=== PATIENT | female | born 1935 | race Caucasian/White ===

== ENCOUNTER 2017-09-30 21:28 | Inpatient (IN) ==
[2017-10-01] MEDS ORDERED: Acetaminophen 325 MG Tablet PO PRN (01:45)
[2017-10-01] MEDS ORDERED: Aluminum/Magnesium/Simethacone Susp 30 ML UDC PO PRN ×2 (01:45→09:20)
[2017-10-01] MEDS ORDERED: Butalbital/APAP/Caff 50/325/40 MG Tablet PO PRN ×2 (02:24→10:41)
[2017-10-01] MEDS ORDERED: QUEtiapine 25 MG Tablet PO SCH ×2 (09:00→13:00)
[2017-10-01] MEDS ORDERED: Bisacodyl 10 MG Supp RECTAL PRN (09:20)
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
[2017-10-01] MEDS: Citalopram 20 MG Tablet PO SCH (10:30)
[2017-10-01] MEDS ORDERED: ALPRAZolam 0.25 MG Tablet PO PRN (10:41)
[2017-10-01] MEDS ORDERED: Non-Formulary Drug (Quetiapine [Quetiapine] 50 MG) PO SCH (13:00)
--- NOTE | 2017-10-01 13:39 | P.CON ---
History of Present Illness Service: Hospitalist service Consult date: 10/01/17 Requesting Physician: Matt Womack Reason for Consult: Assist with medical needs Primary Care Provider: PROVIDER NON STAFF History of Present Illness: This is a 82-year-old female with a past medical history significant for Alzheimer's and atrial fibrillation on Eliquis who was initially admitted at [facility] in [place] under Alan act 09/30/2017 due to aggressiveness, acute confusion and agitation. Reportedly, assisting living facility where the patient resides reported the patient was destructive with self inflicted behaviors including refusing medications and examination. Patient has since been transferred to [facility] inpatient psychiatry and hospitalist services have been consulted to assist with medical management. Patient seen and evaluated in the day room. Patient appears calm and comfortable sitting in chair. She is able to give me a fairly accurate medical history but does not report any issues with increased agitation and combativeness that led to her hospitalization. She does have a tendency to ramble off topic but is easily redirectable. She denies any acute medical complaints. She is alert and oriented 2 able to correctly tell me yesterday was 30 of September and that she is in [place]. She knows that she is in [place] but believes she is in [place]. She is unable to recall the name of the president but can tell me that he is not attractive and very rich. She is unable to tell me the correct year stating it is 2007. She denies any complaints of headache or dizziness. She denies any chest pain or shortness of breath. She denies any nausea, vomiting or abdominal pain. She states she has chronic constipation and normally has a bowel movement once every 3 days. She denies any urinary difficulties. Review of Systems All other systems reviewed negative except as stated in [facility] - History History Provided By: Patient, Medical Record - Medical History Medical History: Medical History (Last Updated 10/01/17 @ 13:27 by Charis Villanueva) Atrial fibrillation Dementia - Surgical History Surgical History: Surgical History (Last Updated 10/01/17 @ 13:28 by Charis Villanueva) H/O breast augmentation History of loop recorder - Family History Family History: Family History (Last Updated 10/01/17 @ 13:29 by Charis Villanueva) Other Atrial fibrillation Coronary heart disease - Tobacco History Second Hand Smoke Exposure: No Tobacco Use In Past 30 Days: No Smoking Status: Never smoker - Alcohol History How Often Do You Have a Drink Containing Alcohol: Monthly or less (Regularly per her daughter's history) - Substance Use History Substance History: No History of Abuse - Immunization History Tetanus Immunization: >5 Years Tetanus Immunization Year if Known: 2017 Hx Influenza Vaccine This Season: Yes Medications and Allergies Active Medications: Active Medications Acetaminophen (Tylenol) 650 mg PO Q4H PRN PRN Reason: Pain 1-5 or Temp >101F Acetaminophen/Butalbital/Caffeine (Fioricet 50-325-40) 1 tab PO Q4H PRN PRN Reason: TENSION HEADACHE Acetaminophen/Butalbital/Caffeine (Fioricet 50-325-40) 1 tab PO Q4H PRN PRN Reason: TENSION HEADACHE Al Hydrox/Mg Hydrox/Simethicone (Mag-Al Plus Susp Liq) 30 ml PO Q6H PRN PRN Reason: DYSPEPSIA Al Hydroxide/Mg Hydroxide (Milk Of Magnesia Liq) 30 ml PO Q12H PRN PRN Reason: Mild Constipation Alprazolam (Xanax) 0.25 mg PO DAILY PRN PRN Reason: Panic Attack(S) Apixaban (Eliquis) 2.5 mg PO BID [facility] Last Admin: 10/01/17 10:29 Dose: 2.5 mg Bisacodyl (Dulcolax Supp) 10 mg RECTAL DAILY PRN PRN Reason: SEVERE CONSITIPATION Citalopram Hydrobromide (Celexa) 20 mg PO DAILY [facility] Last Admin: 10/01/17 10:30 Dose: 20 mg Citalopram Hydrobromide (Celexa) 20 mg PO DAILY [facility] Diphenhydramine HCl (Benadryl) 50 mg PO HS PRN PRN Reason: INSOMNIA Fluticasone Propionate (Flonase Nasal [place]) 1 spray EACH NARE Q24H PRN PRN Reason: FOR ALLERGIES Fluticasone Propionate (Flonase Nasal [place]) 1 spray EACH NARE DAILY PRN PRN Reason: ALLERGY SYMPTOMS Haloperidol (Haldol) 0.5 mg PO DAILY PRN PRN Reason: mood/mental disorder Hydroxyzine HCl (Atarax) 50 mg PO Q6H PRN PRN Reason: ANXIETY Lactulose (Lactulose Liq) 30 ml PO DAILY PRN PRN Reason: SEVERE CONSITIPATION Quetiapine Fumarate (Seroquel) 75 mg PO TID SAPNA Senna/Docusate Sodium (Sandra-Colace) 1 tab PO BID SAPNA Sennosides (Senokot) 17.2 mg PO Q12H PRN PRN Reason: Moderate Constipation Allergies Allergy/AdvReac Type Severity Reaction Status Date / Time Penicillins Allergy Rash Verified 10/01/17 01:23 Home Medications Medication Instructions Recorded Confirmed Type alprazolam 0.25 mg PO DAILY PRN 10/01/17 10/01/17 History apixaban [Eliquis] 2.5 mg PO BID 10/01/17 10/01/17 History bestyafqtk-xyhrksipnvweh-vaxo 1 tab PO Q4H PRN 10/01/17 10/01/17 History citalopram 20 mg PO DAILY 10/01/17 10/01/17 History fluticasone 1 spray INTRANASAL DAILY PRN 10/01/17 10/01/17 History haloperidol 0.5 mg PO DAILY PRN 10/01/17 10/01/17 History quetiapine 25 mg PO TID 10/01/17 10/01/17 History quetiapine 50 mg PO TID 10/01/17 10/01/17 History Physical Exam Vital signs: Vital Signs 09/30/17 23:54 10/01/17 07:38 Temperature 97.6 F Pulse Rate 63 58 L Respiratory Rate 18 18 Blood Pressure 148/68 H 146/67 H Pulse Oximetry 96 96 Intake & Output 09/30/17 10/01/17 10/01/17 18:59 06:59 18:59 Intake Total 360 / 360 Balance 360 / 360 Intake: Oral 360 / 360 Other: Weight On Admission 50.1 kg Narrative: GENERAL: This is a well-developed well-nourished elderly female in no acute distress. Awake and alert. Appears comfortable. SKIN: Warm and dry. HEAD: Atraumatic. Normocephalic. EYES: Pupils equal and round. No scleral icterus. No injection or drainage. ENT: No nasal bleeding or discharge. Mucous membranes pink and moist. NECK: Trachea midline. No JVD. CARDIOVASCULAR: Regular rate and rhythm. No murmurs rubs or gallops appreciated. Unable to palpate a device left anterior chest. RESPIRATORY: Nonlabored. Clear to auscultation. Breath sounds equal bilaterally. GASTROINTESTINAL: Abdomen soft, non-tender, nondistended. Hepatic and splenic margins not palpable. MUSCULOSKELETAL: Extremities without clubbing, cyanosis, or edema. No obvious deformities. NEUROLOGICAL: Awake and alert. Oriented x 2. No obvious cranial nerve deficits. Motor grossly within normal limits. Able to move all extremities spontaneously. No focal neurologic finding appreciated. Normal speech. PSYCHIATRIC: Appropriate mood and affect, judgment and insight poor. Calm and cooperative Assessment and Plan - Plan 82-year-old with past medical history significant for dementia and atrial fibrillation on Eliquis admitted under Alan act to inpatient psychiatry for agitation, aggressiveness consult inflicting behaviors. Hospitalist services have been consulted to assist with medical management. Alzheimer's dementia with behavioral disturbance -Management per psychiatry Atrial fibrillation on Eliquis, rate controlled -Continue Eliquis patient's home dose 2.5mg BID -Continue to monitor heart rate Chronic constipation -We will start patient on scheduled stool softener -MiraLAX as needed DVT prophylaxis -Patient is ambulatory Thank you very kindly for this consultation. Patient appears stable from hospitalist standpoint. [facility] will sign off. Please reconsult if needed. Discussed Condition With: patient
[2017-10-01] MEDS: QUEtiapine 25 MG Tablet PO SCH ×2 (13:44→17:20)
[2017-10-01] MEDS: Senna/Docusate Sodium 8.6/50 MG Tablet PO SCH (20:15)
[2017-10-02] MEDS: Senna/Docusate Sodium 8.6/50 MG Tablet PO SCH ×2 (08:52→20:36)
[2017-10-02] MEDS: QUEtiapine 25 MG Tablet PO SCH ×3 (08:54→18:24)
--- NOTE | 2017-10-02 11:39 | P.PNPSY ---
Subjective Chief Complaint: Dementia with increased violent behavior Remarks: Patient seen in day room with her daughter N nurse Caroline, chart reviewed, patient compliant medications., patient calm cooperative continues diffusely confused with a little bit of [place] it appears that there have been no significant behavioral problems recently. For now continue treatment Review of Systems All other systems reviewed negative except as stated in HPI Mental Status Examination Appearance: Appropriate Consciousness: Alert Orientation: Person Motor Activity: Other (Somewhat shuffling unstable gait will have PT OT assessments) Speech: Unremarkable Language: Adequate Fund of Knowledge: Adequate Attention and Concentration: Adequate (Fair) Memory: Impaired Mood: Other (Euthymic) Affect: Other (Good range and intensity) Thought Process & Associations: Disorganized, Tangential Thought Content: Ideas of reference Hallucination Type: None Delusion Type: None Suicidal Ideation: No Suicidal Plan: No Suicidal Intention: No Homicidal Ideation: No Homicidal Plan: No Homicidal Intention: No Insight: Poor Judgment: Poor Assessment and Plan - Assessment (1) Dementia in other diseases classified elsewhere with behavioral disturbance Code(s): F02.81 - Dementia in other diseases classified elsewhere with behavioral disturbance Status: Acute (2) Alzheimer's disease with late onset Code(s): G30.1 - Alzheimer's disease with late onset; F02.80 - Dementia in other diseases classified elsewhere without behavioral disturbance Status: Acute - Plan Plan: Patient continues demented and confused though behaviors appeared to have lessened, she is compliant with medications. Patient's daughter feels she is also doing somewhat better. For now continue treatment need to verify placement consider discharge after the weekend Justification for Continued Inpatient Stay: At this time patient would decompensate a place to the lower level of care Discharge Planning: Possible return to her prior placement Request Healthcare Surrogate/Guardian Advocate?: Yes
--- NOTE | 2017-10-02 15:10 | P.CONPSY ---
Provisional Diagnosis Admission Date: September 30, 2017 23:40 [place].: Dementia with behavioral disturbances, Alzheimer disease with late onset History of Present Illness Primary Care Provider: PROVIDER NON STAFF History of Present Illness: The patient is an 82-year-old white female living in an LONG-TERM from the [facility] came to [facility] under a Alan act dated 09/30 at 3:15 PM signed by a Darrius Walls that document reviewed essentially states acute confusion and agitation. Assisted living facility since report of her destructive and self-inflicted behaviors refused meds and exam patient seen screen at that facility urine toxicology negative blood alcohol level negative. The patient was consulted to me for second opinion. On psychiatric evaluation the patient is calm, superficially cooperative, quite disoriented. The patient states that she is at home, she does not know the reason she was brought to the hospital. She says that she feels fine, reports happy mood. She denies suicidal and homicidal ideation, she denies visual and auditory hallucinations at the moment. PMF - History History Provided By: Patient, Medical Record - Medical History Medical History: Medical History (Last Reviewed 10/01/17 @ 13:48 by Wm Vasquez) Atrial fibrillation Dementia - Surgical History Surgical History: Surgical History (Last Reviewed 10/01/17 @ 13:48 by Wm Vasquez) H/O breast augmentation History of loop recorder - Family History Family History: Family History (Last Updated 10/01/17 @ 13:29 by Charis Villanueva) Other Atrial fibrillation Coronary heart disease - Tobacco History Second Hand Smoke Exposure: No Tobacco Use In Past 30 Days: No Smoking Status: Never smoker - Alcohol History How Often Do You Have a Drink Containing Alcohol: Monthly or less (Regularly per her daughter's history) - Substance Use History Substance History: No History of Abuse - Immunization History Tetanus Immunization: >5 Years Tetanus Immunization Year if Known: 2017 Hx Influenza Vaccine This Season: Yes Medications and Allergies Active Medications: Active Medications Acetaminophen (Tylenol) 650 mg PO Q4H PRN PRN Reason: Pain 1-5 or Temp >101F Acetaminophen/Butalbital/Caffeine (Fioricet 50-325-40) 1 tab PO Q4H PRN PRN Reason: TENSION HEADACHE Acetaminophen/Butalbital/Caffeine (Fioricet 50-325-40) 1 tab PO Q4H PRN PRN Reason: TENSION HEADACHE Al Hydrox/Mg Hydrox/Simethicone (Mag-Al Plus Susp Liq) 30 ml PO Q6H PRN PRN Reason: DYSPEPSIA Al Hydroxide/Mg Hydroxide (Milk Of Magnesia Liq) 30 ml PO Q12H PRN PRN Reason: Mild Constipation Alprazolam (Xanax) 0.25 mg PO DAILY PRN PRN Reason: Panic Attack(S) Apixaban (Eliquis) 2.5 mg PO BID [facility] Last Admin: 10/02/17 08:52 Dose: 2.5 mg Bisacodyl (Dulcolax Supp) 10 mg RECTAL DAILY PRN PRN Reason: SEVERE CONSITIPATION Citalopram Hydrobromide (Celexa) 20 mg PO DAILY [facility] Last Admin: 10/01/17 10:30 Dose: 20 mg Citalopram Hydrobromide (Celexa) 20 mg PO DAILY [facility] Diphenhydramine HCl (Benadryl) 50 mg PO HS PRN PRN Reason: INSOMNIA Fluticasone Propionate (Flonase Nasal [place]) 1 spray EACH NARE Q24H PRN PRN Reason: FOR ALLERGIES Fluticasone Propionate (Flonase Nasal [place]) 1 spray EACH NARE DAILY PRN PRN Reason: ALLERGY SYMPTOMS Haloperidol (Haldol) 0.5 mg PO DAILY PRN PRN Reason: mood/mental disorder Hydroxyzine HCl (Atarax) 50 mg PO Q6H PRN PRN Reason: ANXIETY Lactulose (Lactulose Liq) 30 ml PO DAILY PRN PRN Reason: SEVERE CONSITIPATION Quetiapine Fumarate (Seroquel) 75 mg PO TID [facility] Last Admin: 10/02/17 08:54 Dose: 75 mg Senna/Docusate Sodium (Sandra-Colace) 1 tab PO BID [facility] Last Admin: 10/02/17 08:52 Dose: 1 tab Sennosides (Senokot) 17.2 mg PO Q12H PRN PRN Reason: Moderate Constipation Allergies Allergy/AdvReac Type Severity Reaction Status Date / Time Penicillins Allergy Rash Verified 10/01/17 01:23 Home Medications Medication Instructions Recorded Confirmed Type alprazolam 0.25 mg PO DAILY PRN 10/01/17 10/01/17 History apixaban [Eliquis] 2.5 mg PO BID 10/01/17 10/01/17 History [id number]-klvsodswesufx-tkpr 1 tab PO Q4H PRN 10/01/17 10/01/17 History citalopram 20 mg PO DAILY 10/01/17 10/01/17 History fluticasone 1 spray INTRANASAL DAILY PRN 10/01/17 10/01/17 History haloperidol 0.5 mg PO DAILY PRN 10/01/17 10/01/17 History quetiapine 25 mg PO TID 10/01/17 10/01/17 History quetiapine 50 mg PO TID 10/01/17 10/01/17 History Exam Vital signs: Vital Signs 10/02/17 06:24 Temperature 97.9 F Respiratory Rate 16 Blood Pressure 160/68 H Pulse Oximetry 96 Intake & Output 10/01/17 10/02/17 10/02/17 18:59 06:59 18:59 Intake Total 360 / 360 Balance 360 / 360 Intake: Oral 360 / 360 Mental Status Examination Appearance: Appropriate Consciousness: Alert Orientation: Person Motor Activity: Other (Somewhat shuffling unstable gait will have PT OT assessments) Speech: Unremarkable Language: Adequate Fund of Knowledge: Adequate Attention and Concentration: Adequate (Fair) Memory: Impaired Mood: Other (Euthymic) Affect: Other (Good range and intensity) Thought Process & Associations: Disorganized, Tangential Thought Content: Ideas of reference Hallucination Type: None Delusion Type: None Suicidal Ideation: No Suicidal Plan: No Suicidal Intention: No Homicidal Ideation: No Homicidal Plan: No Homicidal Intention: No Insight: Poor Judgment: Poor Assessment and Plan - Assessment (1) Dementia in other diseases classified elsewhere with behavioral disturbance Code(s): F02.81 - Dementia in other diseases classified elsewhere with behavioral disturbance Status: Acute (2) Alzheimer's disease with late onset Code(s): G30.1 - Alzheimer's disease with late onset; F02.80 - Dementia in other diseases classified elsewhere without behavioral disturbance Status: Acute - Plan Plan: Patient continues demented and confused though behaviors appeared to have lessened, she is compliant with medications. Patient's daughter feels she is also doing somewhat better. For now continue treatment need to verify placement consider discharge after the weekend. I have seen and examined this patient, reviewed documentation, I agree and concur with Dr. Womack's assessment and plan. Justification for Continued Inpatient Stay: Continue psychiatric admission Request Healthcare Surrogate/Guardian Advocate?: Yes (2) Alzheimer's disease with late onset Qualifiers: Dementia behavioral disturbance: with behavioral disturbance Qualified Code(s ): G30.1 - Alzheimer's disease with late onset; F02.81 - Dementia in other diseases classified elsewhere with behavioral disturbance
[2017-10-02] MEDS: Citalopram 20 MG Tablet PO SCH ×2 (18:21)
[2017-10-03] MEDS: Citalopram 20 MG Tablet PO SCH ×2 (08:28→08:31)
[2017-10-03] MEDS: Senna/Docusate Sodium 8.6/50 MG Tablet PO SCH ×2 (08:28→21:20)
[2017-10-03] MEDS: QUEtiapine 25 MG Tablet PO SCH ×3 (08:28→17:46)
--- NOTE | 2017-10-03 16:59 | P.PNPSY ---
Subjective Chief Complaint: Dementia with increased violent behavior Remarks: Pt seen and discussed with staff. She has been cooperative with medications and care. She has been intrusive and following staff into patients room. Thought process is nonsensical, but pt has been redirectable today. No SI/HI. No aggression today Mental Status Examination Appearance: Appropriate Consciousness: Alert Orientation: Person Motor Activity: Other (Somewhat shuffling unstable gait will have PT OT assessments) Speech: Unremarkable Language: Adequate Fund of Knowledge: Adequate Attention and Concentration: Adequate (Fair) Memory: Impaired Mood: Other (Euthymic) Affect: Other (Good range and intensity) Thought Process & Associations: Disorganized, Tangential Thought Content: Ideas of reference Hallucination Type: None Delusion Type: None Suicidal Ideation: No Suicidal Plan: No Suicidal Intention: No Homicidal Ideation: No Homicidal Plan: No Homicidal Intention: No Insight: Poor Judgment: Poor Assessment and Plan - Assessment (1) Dementia in other diseases classified elsewhere with behavioral disturbance Code(s): F02.81 - Dementia in other diseases classified elsewhere with behavioral disturbance Status: Acute (2) Alzheimer's disease with late onset Code(s): G30.1 - Alzheimer's disease with late onset; F02.80 - Dementia in other diseases classified elsewhere without behavioral disturbance Status: Acute - Plan Plan: Continue current tx plan. Justification for Continued Inpatient Stay: risk of decompensation Request Healthcare Surrogate/Guardian Advocate?: Yes (2) Alzheimer's disease with late onset Qualifiers: Dementia behavioral disturbance: with behavioral disturbance Qualified Code(s ): G30.1 - Alzheimer's disease with late onset; F02.81 - Dementia in other diseases classified elsewhere with behavioral disturbance
[2017-10-04] MEDS: Citalopram 20 MG Tablet PO SCH ×2 (08:54)
[2017-10-04] MEDS: Senna/Docusate Sodium 8.6/50 MG Tablet PO SCH ×2 (08:54→21:37)
[2017-10-04] MEDS: QUEtiapine 25 MG Tablet PO SCH ×3 (08:54→17:36)
--- NOTE | 2017-10-04 13:00 | P.PNPSY ---
Subjective Chief Complaint: Dementia with increased violent behavior Remarks: Pt seen and discussed with staff. She was very confused and agitated during care today with RN and MHT. She was compliant with morning medications and lability has calmed some. She requires frequent redirection. Mental Status Examination Appearance: Appropriate Consciousness: Alert Orientation: Person Motor Activity: Other (Somewhat shuffling unstable gait will have PT OT assessments) Speech: Unremarkable Language: Adequate Fund of Knowledge: Adequate Attention and Concentration: Adequate (Fair) Memory: Impaired Mood: Other (Euthymic) Affect: Other (Good range and intensity) Thought Process & Associations: Disorganized, Tangential Thought Content: Ideas of reference Hallucination Type: None Delusion Type: None Suicidal Ideation: No Suicidal Plan: No Suicidal Intention: No Homicidal Ideation: No Homicidal Plan: No Homicidal Intention: No Insight: Poor Judgment: Poor Assessment and Plan - Assessment (1) Dementia in other diseases classified elsewhere with behavioral disturbance Code(s): F02.81 - Dementia in other diseases classified elsewhere with behavioral disturbance Status: Acute (2) Alzheimer's disease with late onset Code(s): G30.1 - Alzheimer's disease with late onset; F02.80 - Dementia in other diseases classified elsewhere without behavioral disturbance Status: Acute - Plan Plan: Continue current tx plan. Justification for Continued Inpatient Stay: risk of decompensation Request Healthcare Surrogate/Guardian Advocate?: Yes (2) Alzheimer's disease with late onset Qualifiers: Dementia behavioral disturbance: with behavioral disturbance Qualified Code(s ): G30.1 - Alzheimer's disease with late onset; F02.81 - Dementia in other diseases classified elsewhere with behavioral disturbance
[2017-10-05] MEDS: QUEtiapine 25 MG Tablet PO SCH ×3 (09:27→17:14)
[2017-10-05] MEDS: Citalopram 20 MG Tablet PO SCH (09:27)
[2017-10-05] MEDS: Senna/Docusate Sodium 8.6/50 MG Tablet PO SCH ×2 (09:28→23:13)
--- NOTE | 2017-10-05 12:53 | P.PNPSY ---
Subjective Chief Complaint: Dementia with increased violent behavior Remarks: Patient seen in day room with staff, and nurse June, chart reviewed, patient compliant medications. Patient continues vigilant somewhat paranoid and confused staff notes that they observed patient to be talking to herself at times as if responding to internal stimuli. However patient is showing no behavioral problems. Now continue treatment Review of Systems All other systems reviewed negative except as stated in HPI Mental Status Examination Appearance: Appropriate Consciousness: Alert Orientation: Person Motor Activity: Other (Somewhat shuffling unstable gait will have PT OT assessments) Speech: Unremarkable Language: Adequate Fund of Knowledge: Adequate Attention and Concentration: Adequate (Fair) Memory: Impaired Mood: Other (Euthymic) Affect: Other (Good range and intensity) Thought Process & Associations: Disorganized, Tangential Thought Content: Ideas of reference Hallucination Type: None (Perhaps some vague auditory staff notes patient appears to be talking to herself) Delusion Type: None Suicidal Ideation: No Suicidal Plan: No Suicidal Intention: No Homicidal Ideation: No Homicidal Plan: No Homicidal Intention: No Insight: Poor Judgment: Poor Assessment and Plan - Assessment (1) Dementia in other diseases classified elsewhere with behavioral disturbance Code(s): F02.81 - Dementia in other diseases classified elsewhere with behavioral disturbance Status: Acute (2) Alzheimer's disease with late onset Code(s): G30.1 - Alzheimer's disease with late onset; F02.80 - Dementia in other diseases classified elsewhere without behavioral disturbance Status: Acute - Plan Plan: Patient continues confused demented possibility of intermittent auditory hallucinations, complaint medications now continue treatment Justification for Continued Inpatient Stay: At this time patient would decompensate a place to a lower level of care Discharge Planning: To be determined Request Healthcare Surrogate/Guardian Advocate?: Yes (2) Alzheimer's disease with late onset Qualifiers: Dementia behavioral disturbance: with behavioral disturbance Qualified Code(s ): G30.1 - Alzheimer's disease with late onset; F02.81 - Dementia in other diseases classified elsewhere with behavioral disturbance
[2017-10-05] MEDS ORDERED: amLODIPine 5 MG Tablet PO ONE (13:16)
--- NOTE | 2017-10-05 14:07 | P.PN ---
Subjective Interval history: Reconsult for uncontrolled HTN. Patient seen and examined. Patient is significantly confused. Oriented to self only. She denies any dizziness or headache. She denies any chest pain or shortness of breath. She denies any N/ V or abdominal pain. She is not sure of her last bowel movement. She denies any urinary difficulties. Discussed with DANIAL Watkins. Unsure of patients last BM. Physical Exam Vital signs: Vital Signs 10/04/17 17:28 10/05/17 06:00 10/05/17 08:32 Temperature 97.5 F L 98.4 F Pulse Rate 69 72 78 Respiratory Rate 17 Blood Pressure 167/74 H 186/87 H 149/65 H Pulse Oximetry 93 L 94 L Intake & Output 10/04/17 10/05/17 10/05/17 18:59 06:59 18:59 Intake Total 720 / 720 Balance 720 / 720 Intake: Oral 720 / 720 Other: # Voids 2 Narrative: GENERAL: This is a well-developed well-nourished elderly female in no acute distress. Awake and alert. Ambulating in unit without any difficulty. SKIN: Warm and dry. No generalized rash. HEAD: Atraumatic. Normocephalic. EYES: EOMI. No scleral icterus. No injection or drainage. ENT: No nasal bleeding or discharge. Mucous membranes pink and moist. NECK: Trachea midline. CARDIOVASCULAR: Regular rate and rhythm. No murmurs rubs or gallops appreciated. RESPIRATORY: Nonlabored. Clear to auscultation. Breath sounds equal bilaterally. GASTROINTESTINAL: Abdomen soft, non-tender, nondistended. MUSCULOSKELETAL: Extremities without clubbing, cyanosis, or edema. No obvious deformities. NEUROLOGICAL: Awake and alert. Oriented x 1. No obvious cranial nerve deficits. Motor grossly within normal limits. Able to move all extremities spontaneously. No focal neurologic finding appreciated. Normal speech. PSYCHIATRIC: Oriented to self only. Judgment and insight poor. Calm and cooperative Assessment and Plan - Plan 82-year-old with past medical history significant for dementia and atrial fibrillation on Eliquis admitted under Alan act to inpatient psychiatry for agitation, aggressiveness consult inflicting behaviors. Hospitalist services have been consulted to assist with medical management. Alzheimer's dementia with behavioral disturbance -Management per psychiatry Atrial fibrillation on Eliquis, rate controlled, HR in the 60s -Continue Eliquis patient's home dose 2.5mg BID -Continue to monitor heart rate Hypertension, not on any antihypertensives prior to admission per review of medical record -initiate BP management with Norvasc 5mg daily -Clonidine prn with parameters -Continue to monitor BP and adjust treatment accordingly Chronic constipation -continue on stool softener BID -MiraLAX as needed DVT prophylaxis -Patient is ambulatory Discussed Condition With: patient, June RN and Dr. Alcala
[2017-10-06] MEDS: Senna/Docusate Sodium 8.6/50 MG Tablet PO SCH ×2 (09:11→20:28)
[2017-10-06] MEDS: QUEtiapine 25 MG Tablet PO SCH ×3 (09:11→17:53)
[2017-10-06] MEDS: Citalopram 20 MG Tablet PO SCH (09:11)
[2017-10-06] MEDS: amLODIPine 5 MG Tablet PO SCH (09:11)
--- NOTE | 2017-10-06 10:40 | P.PNPSY ---
Subjective Chief Complaint: Dementia with increased violent behavior Remarks: Patient seen in day room with nurse Watkins, chart review, patient compliant medications, patient sitting quietly in the dayroom she is calm pleasant with us was still with somewhat decreased range and intensity of her affect. Though she is somewhat more verbal today. He does denies suicidality or voices today over the confusion remains her orientation is still confused Review of Systems All other systems reviewed negative except as stated in HPI Mental Status Examination Appearance: Appropriate Consciousness: Alert Orientation: Person Motor Activity: Other (Somewhat shuffling unstable gait will have PT OT assessments) Speech: Unremarkable Language: Adequate Fund of Knowledge: Adequate Attention and Concentration: Adequate (Fair) Memory: Impaired Mood: Other (Euthymic to mildly dysphoric) Affect: Other (Good range and intensity) Thought Process & Associations: Disorganized, Tangential Thought Content: Ideas of reference Hallucination Type: None (Perhaps some vague auditory staff notes patient appears to be talking to herself) Delusion Type: None Suicidal Ideation: No Suicidal Plan: No Suicidal Intention: No Homicidal Ideation: No Homicidal Plan: No Homicidal Intention: No Insight: Poor Judgment: Poor Assessment and Plan - Assessment (1) Dementia in other diseases classified elsewhere with behavioral disturbance Code(s): F02.81 - Dementia in other diseases classified elsewhere with behavioral disturbance Status: Acute (2) Alzheimer's disease with late onset Code(s): G30.1 - Alzheimer's disease with late onset; F02.80 - Dementia in other diseases classified elsewhere without behavioral disturbance Status: Acute - Plan Plan: Patient remains confused demented somewhat sad today. The low behavioral problems, compliant medications. Justification for Continued Inpatient Stay: At this time patient would decompensate if placed in a lower level of care Discharge Planning: To be determined Request Healthcare Surrogate/Guardian Advocate?: Yes (2) Alzheimer's disease with late onset Qualifiers: Dementia behavioral disturbance: with behavioral disturbance Qualified Code(s ): G30.1 - Alzheimer's disease with late onset; F02.81 - Dementia in other diseases classified elsewhere with behavioral disturbance
[2017-10-07] MEDS: QUEtiapine 25 MG Tablet PO SCH ×2 (10:10→13:48)
[2017-10-07] MEDS: Senna/Docusate Sodium 8.6/50 MG Tablet PO SCH (10:11)
[2017-10-07] MEDS: amLODIPine 5 MG Tablet PO SCH (10:11)
[2017-10-07] MEDS: Citalopram 20 MG Tablet PO SCH (10:11)
--- NOTE | 2017-10-07 14:05 | P.DSPSY ---
Psychiatry Discharge Summary Inpatient Psychiatric care?: Yes Advance Directives: No Reason for Unknown:: Due to Patient Condition Mental Health Advance Directive: No Health Care Proxy: No - Admission Admission Date: September 30, 2017 23:40 - Admission Diagnosis (1) Dementia in other diseases classified elsewhere with behavioral disturbance Code(s): F02.81 - Dementia in other diseases classified elsewhere with behavioral disturbance (2) Alzheimer's disease with late onset Code(s): G30.1 - Alzheimer's disease with late onset; F02.80 - Dementia in other diseases classified elsewhere without behavioral disturbance Brief History: Patient is an 82-year-old white female living in an [facility] from the [facility] came to [facility] under a Alan act dated 09/30 at 3:15 PM signed by farzad Walls that document reviewed essentially states acute confusion and agitation. Assisted living facility since report of her destructive and self-inflicted behaviors refused meds and exam patient seen screen at that facility urine toxicology negative blood alcohol level negative. Patient transferred here after medically cleared. At the present time patient sitting quietly in a chair in the dayroom nurse Caty present throughout session. Last night patient needed DTO's control her [id number] violent oppositional behavior. She then slept through most of the night. Patient seen by me this morning with nurse Caty she is alert diffusely confused white female appears somewhat younger than stated age she is vaguely oriented to time with coaching she knows that yesterday was 4 September. She thinks she is in [facility]. She does not know what this building is 4. She has no detailed memory of her behaviors that led to this hospitalization. Though she remembers being in the ambulance. She denies alcohol or drug use denies any voices or visions with this she states she is has 5 children some of which live local.. I have talked to patient's daughter Sarah at [phone] she verifies the above. States mother had some type of psychiatric contact and number of years ago for what appears to be a depressive episode. That mother was somewhat explosive in the past and not always the kindest mother. That she had an occasional glass of wine. But did not smoke. She also verifies various significant episodes in her mother's life around the first part of September. This mother's been in some various placements over the past 2 years some successful somewhat very successful. In any event the daughter agrees to be healthcare surrogate, daughter has power of [place] attorney, and the daughter states that they have event structures patient to be a DO NOT RESUSCITATE. Daughter is also given us permission continue on medication per the med reconciliation. At this time patient does not meet criteria for involuntary psychiatric hospitalization I will do first opinion request second opinion for she does not have capacity I will ask for health care surrogate and guardian advocate. We will have the hospitalist consult will S will have PT and OT consult will us we will work with a counselor in the family to determine placement issues hopeless be fairly short stay him can adjust the medications and refer her back to the community Tobacco Use In Past 30 Days: No How Often Do You Have a Drink Containing Alcohol: Monthly or less (Regularly per her daughter's history) Hospital Course: Patient's hospital course was essentially uneventful her dementia and confusion persisted though at times she presented fairly well. She denies suicidality homicidality voice or visions. We did meet with patient's son Etta to feels his mother is doing well. There is a bed available today and the [facility] near [place]. Patient be discharged today to her son for transportation to that facility for the care and attention Rx 1 month follow-up care through that facility - Discharge Discharge Date: 10/07/17 - Discharge Diagnosis (1) Dementia in other diseases classified elsewhere with behavioral disturbance Diagnosis: Principal Code(s): F02.81 - Dementia in other diseases classified elsewhere with behavioral disturbance Status: Acute (2) Alzheimer's disease with late onset Diagnosis: Principal Code(s): G30.1 - Alzheimer's disease with late onset; F02.80 - Dementia in other diseases classified elsewhere without behavioral disturbance Status: Acute Discharge Disposition: Assisted Living Facility - Discharge Instructions Discharge Diet: Regular Diet Activities You Can Perform: Regular- No Restrictions - Discharge Time > 30 minutes Mental Status Examination Appearance: Appropriate Consciousness: Alert Orientation: Person Motor Activity: Other (Somewhat shuffling unstable gait will have PT OT assessments) Speech: Unremarkable Language: Adequate Fund of Knowledge: Adequate Attention and Concentration: Adequate (Fair) Memory: Impaired Mood: Other (Euthymic to mildly dysphoric) Affect: Other (Good range and intensity) Thought Process & Associations: Disorganized, Tangential Thought Content: Ideas of reference Hallucination Type: None (Perhaps some vague auditory staff notes patient appears to be talking to herself) Delusion Type: None Suicidal Ideation: No Suicidal Plan: No Suicidal Intention: No Homicidal Ideation: No Homicidal Plan: No Homicidal Intention: No Insight: Poor Judgment: Poor Discharge/Advance Care Plan - Results Vital Signs: Last Vital Signs Temp 98.2 F 10/07/17 06:00 Pulse 66 10/07/17 06:00 Resp 16 10/07/17 06:00 BP 127/77 10/07/17 06:00 Pulse Ox 93 L 10/07/17 06:00 Lab Results: Please see EMR for full lab results Summary of Procedures: None done Pending Results: None - Medications Number of antipsychotic medications at discharge: 1 - Discharge Care Plan Goals to Promote Your Health: * To prevent worsening of your condition and complications * To maintain your health at the optimal level Directions to Meet Your Goals: Take your medications as prescribed Follow your dietary instruction Follow activity as directed Keep your appointments as scheduled Take your immunizations and boosters as scheduled If your symptoms worsen call your PCP, if no PCP go to Urgent Care Center or Emergency Room For 20/10 questions related to your inpatient stay or results of tests pending at discharge, please contact Dr. Matt Womack MD at Smoking is Dangerous to Your Health. Avoid second hand smoking (2) Alzheimer's disease with late onset Qualifiers: Dementia behavioral disturbance: with behavioral disturbance Qualified Code(s ): G30.1 - Alzheimer's disease with late onset; F02.81 - Dementia in other diseases classified elsewhere with behavioral disturbance (2) Alzheimer's disease with late onset Qualifiers: Dementia behavioral disturbance: with behavioral disturbance Qualified Code(s ): G30.1 - Alzheimer's disease with late onset; F02.81 - Dementia in other diseases classified elsewhere with behavioral disturbance
== END 2017-10-07 14:13 ==
LOC: H250 23:40
PROVIDERS: ADMIT Psychiatry & Neurology Psychiatry; ATTEND Psychiatry & Neurology Psychiatry